=== PATIENT | female | born 1995 ===

== ENCOUNTER 2023-06-07 23:05 | Emergency (ER) | payer SELFPAY ==
[2023-06-07 23:21] LABS: BASOPHILS ABSOLUTE AUTO 0.14 K/uL (0.00-0.20); BASOPHILS PERCENT AUTO 1.4 % (0.0-1.0); EOSINOPHILS ABSOLUTE AUTO 0.24 K/uL (0.00-0.45); EOSINOPHILS PERCENT AUTO 2.4 % (0.0-6.0); HEMATOCRIT 42.4 % (37.0-47.0); HEMOGLOBIN 14.4 g/dL (12.0-16.0); IMMATURE GRAN ABSOLUTE AUTO 0.03 K/uL (0.00-0.05); IMMATURE GRAN PERCENT AUTO 0.3 % (0.0-0.4); LYMPHOCYTES ABSOLUTE AUTO 3.43 K/uL (1.00-4.80); LYMPHOCYTES PERCENT AUTO 33.6 % (24.0-44.0); MEAN CORPUSCULAR HEMOGLOBIN 30.7 pg (28.0-32.0); MEAN CORPUSCULAR VOLUME 90.4 fL (83.0-99.0); MEAN PLATELET VOLUME 10.3 fL (9.4-12.3); MONOCYTES ABSOLUTE AUTO 0.44 K/uL (0.00-0.80); MONOCYTES PERCENT AUTO 4.3 % (0.0-8.0); NEUTROPHILS ABSOLUTE AUTO 5.93 K/uL (1.80-7.70); PLATELET COUNT,PLT 320 K/uL (150-400); RED BLOOD CELL COUNT 4.69 M/uL (4.10-5.30); WHITE BLOOD CELL COUNT,WBC 10.21 K/uL (3.9-11.3)
[2023-06-07] MEDS: fentaNYL 50 MCG/ML SDV IVPUSH ONE (23:21)
[2023-06-07] MEDS: Sodium Chloride 0.9% 1,000 ML IV ONE (23:21)
[2023-06-07] MEDS: Sodium Chloride 0.9% 2.5 ML Syringe FLUSH PRN (23:21)
[2023-06-07] MEDS: Sodium Chloride 0.9% 10 ML Syringe FLUSH PRN (23:21)
[2023-06-07] MEDS: Ondansetron 4 MG/2 ML SDV IVPUSH ONE (23:21)
[2023-06-07 23:44] LABS: A/G RATIO 0.9 (0.9-1.6); ALBUMIN 3.4 g/dL (3.4-5.0); BILIRUBIN TOTAL 0.4 mg/dL (0.2-1.0); CALCIUM 8.1 mg/dL (8.5-10.1); CARBON DIOXIDE,CO2 25.1 mmol/L (21.0-32.0); CREATININE 0.7 mg/dL (0.6-1.0); EST CRCL DRUG DOSING (CG) 107.67 mL/min; PROTEIN TOTAL,TP 7.1 g/dL (6.4-8.2)
== END 2023-06-08 02:00 ==
LOC: MW.ED 23:05
DX: S93.602A Unspecified sprain of left foot, initial encounter (principal); Z47.2 Encounter for removal of internal fixation device; Z02.89 Encounter for other administrative examinations; Z88.8 Allergy status to other drugs, medicaments and biological substances; X58.XXXA Exposure to other specified factors, initial encounter
CPT/HCPCS: 36415; 73600; 73630; 80053; 83690; 84703; 85025; 96374; 96375; 99284; J2405; J3010; J3490; J7030